=== PATIENT | male | born 1975 | race Native Hawaiian/Other Pacific Islander ===

== ENCOUNTER 2017-06-18 13:10 | Outpatient (CLI) | payer OTHER | END 2017-06-18 21:54 | disposition home or self-care (01) | LOC: RAD 13:10 | DX: R05 Cough (principal); M54.5 Low back pain ==

== ENCOUNTER 2018-12-12 16:55 | Emergency (ER) | payer BC ==
[~2018-12-12] VITALS: Ht 167.6 cm; Wt 74.8 kg
[2018-12-12 17:09] VITALS: BP 151/90; TEMP 98.2
== END 2018-12-12 18:26 | disposition home or self-care (01) ==
LOC: ED 16:55
DX: S92.352A Displaced fracture of fifth metatarsal bone, left foot, initial encounter for closed fracture (principal); M79.672 Pain in left foot; W01.0XXA Fall on same level from slipping, tripping and stumbling without subsequent striking against object, initial encounter; Y92.89 Other specified places as the place of occurrence of the external cause
CPT/HCPCS: 99282